=== PATIENT | male | born 1945 | race African-American/Black ===

== ENCOUNTER 2018-12-25 13:59 | Emergency (ER) | payer MEDICARE, MEDICAID ==
[~2018-12-25] VITALS: Ht 172.7 cm; Wt 65.0 kg
[2018-12-25] MEDS ORDERED: SODIUM CHLORIDE 0.9% 1,000 ML IV ONE (16:00)
[2018-12-25] MEDS ORDERED: ADENOSINE 3 MG/ML 2ML VIAL IV ONE (16:15)
[2018-12-25 16:42] LABS: BASOPHILS % 0.2 % (0.0-2.0); EOSINOPHILS % 0.4 % (0.0-5.0); HEMATOCRIT. 46.3 % (42.0-52.0); HEMOGLOBIN. 16.3 g/dL (14.0-18.0); LYMPHOCYTES % 10.7 % (20.0-50.0); MEAN CORPUSCULAR VOLUME 90.6 fL (80.0-94.0); MEAN PLATELET VOLUME 7.5 fl (7.4-10.4); MONOCYTES % 9.2 % (2.0-8.0); NEUTROPHILS % 79.5 % (40.0-76.0); PLATELET 277 x1000/uL (130-400); RED BLOOD CELL COUNT 5.11 mill/uL (4.7-6.1); RED CELL DISTRIBUTION WIDTH 13.6 % (11.6-14.6)
[2018-12-25 16:45] LABS: CHLORIDE 109 mEq/L (98-107)
[2018-12-25 16:53] VITALS: BP 106/75
== END 2018-12-25 18:41 | disposition home or self-care (01) ==
LOC: ER 13:59
DX: I47.1 Supraventricular tachycardia (principal); R55 Syncope and collapse; R42 Dizziness and giddiness; F14.10 Cocaine abuse, uncomplicated
CPT/HCPCS: 36415; 71045; 80053; 83735; 84484; 85025; 93005; 96360; 99284; J0153; J7030

== ENCOUNTER 2021-01-24 18:42 | Inpatient (IN) | payer MEDICARE, MEDICAID ==
[~2021-01-24] VITALS: Ht 175.3 cm; Wt 61.5 kg
[2021-01-24] MEDS ORDERED: SODIUM CHLORIDE 0.9% 1,000 ML IV ONE (19:00)
[2021-01-24 20:45] LABS: HEMATOCRIT. 46.8 % (42.0-52.0); HEMOGLOBIN. 15.8 g/dL (14.0-18.0); MEAN CORPUSCULAR HEMOGLOBIN 30.8 pg (28.0-32.0); MEAN CORPUSCULAR VOLUME 90.8 fL (80.0-94.0); MEAN PLATELET VOLUME 7.4 fl (7.4-10.4); PLATELET 266 x1000/uL (130-400); RED BLOOD CELL COUNT 5.15 mill/uL (4.7-6.1); RED CELL DISTRIBUTION WIDTH 13.4 % (11.6-14.6)
[2021-01-24 20:46] LABS: CHLORIDE 107 mEq/L (98-107)
[2021-01-24 20:51] LABS: ETHANOL BLOOD < 10 mg/dL
[2021-01-24 21:29] LABS: PLATELET ESTIMATE NORMAL
[2021-01-24 22:03] LABS: CLARITY URINE CLEAR (CLEAR); COLOR URINE YELLOW (YELLOW); KETONES URINE 1+ (NEGATIVE); LEUKOCYTE ESTERASE URINE NEGATIVE (NEGATIVE); NITRITE URINE NEGATIVE (NEGATIVE); OCCULT BLOOD URINE NEGATIVE (NEGATIVE); PROTEIN URINE 2+ (NEGATIVE); SPECIFIC GRAVITY URINE 1.015 (1.005-1.030)
[2021-01-24 22:17] LABS: *AMPHETAMINES SCREEN URINE NEGATIVE (NEGATIVE); *BARBITURATES SCREEN URINE NEGATIVE (NEGATIVE); *BENZODIAZEPINES SCREEN URINE NEGATIVE (NEGATIVE)
[2021-01-24 22:18] LABS: *COCAINE SCREEN URINE PRESUMTIVE POSITIVE (NEGATIVE); CANNABINOID URINE SCREEN NEGATIVE (NEGATIVE); METHADONE URINE SCREEN NEGATIVE (NEGATIVE); OPIATES URINE SCREEN NEGATIVE (NEGATIVE); PHENCYCLIDINE URINE SCREEN NEGATIVE (NEGATIVE)
[2021-01-25] VITALS (8 sets, daily range): BP systolic 106–148; BP diastolic 70–89
[2021-01-25] MEDS ORDERED: HYDR-4009 MT (10:01)
[2021-01-25] MEDS ORDERED: QUET25TA MT (10:01)
[2021-01-25] MEDS ORDERED: TAMS-11 PO (10:01)
[2021-01-25] MEDS ORDERED: INFLUENZA VACCINE 05/PF 0.5 ML SYRINGE IM ONE (10:15)
[2021-01-25] MEDS ORDERED: ONDANSETRON HCL 4MG/2ML INJ IV PRN (10:15)
[2021-01-25] MEDS ORDERED: ACETAMINOPHEN 325MG TABLET PO PRN (10:15)
[2021-01-25] MEDS ORDERED: HYDROCODONE/ACETAMINOPHEN 10/325MG TABLET PO PRN (10:30)
[2021-01-25] MEDS ORDERED: NALOXONE HCL 0.4MG/ML VIAL IV PRN (12:15)
[2021-01-25 12:56] LABS: BASOPHILS % 0.4 % (0.0-2.0); EOSINOPHILS % 0.6 % (0.0-5.0); HEMATOCRIT. 42.1 % (42.0-52.0); HEMOGLOBIN. 14.5 g/dL (14.0-18.0); LYMPHOCYTES % 15.1 % (20.0-50.0); MEAN CORPUSCULAR HEMOGLOBIN 30.9 pg (28.0-32.0); NEUTROPHILS % 76.9 % (40.0-76.0); PLATELET 271 x1000/uL (130-400); RED BLOOD CELL COUNT 4.68 mill/uL (4.7-6.1); RED CELL DISTRIBUTION WIDTH 13.6 % (11.6-14.6)
[2021-01-25 13:00] LABS: CHLORIDE 111 mEq/L (98-107)
[2021-01-25] MEDS: ENOXAPARIN 30MG/0.3ML SYR SUBCUT SCH (14:35)
[2021-01-25] MEDS: TAMSULOSIN HCL 0.4MG SR CAPSULE PO SCH (14:35)
[2021-01-25] MEDS: DILTIAZEM HCL 60MG TABLET PO SCH ×2 (14:36→18:59)
[2021-01-26] VITALS (7 sets, daily range): BP systolic 104–137; BP diastolic 67–89
[2021-01-26] MEDS: DILTIAZEM HCL 60MG TABLET PO SCH ×3 (00:15→12:00)
[2021-01-26 06:33] LABS: BASOPHILS % 0.7 % (0.0-2.0); EOSINOPHILS % 1.5 % (0.0-5.0); HEMATOCRIT. 41.7 % (42.0-52.0); HEMOGLOBIN. 14.3 g/dL (14.0-18.0); LYMPHOCYTES % 22.3 % (20.0-50.0); MEAN CORPUSCULAR HEMOGLOBIN 30.8 pg (28.0-32.0); MEAN CORPUSCULAR VOLUME 89.7 fL (80.0-94.0); MEAN PLATELET VOLUME 7.6 fl (7.4-10.4); MONOCYTES % 7.6 % (2.0-8.0); NEUTROPHILS % 67.9 % (40.0-76.0); PLATELET 266 x1000/uL (130-400); RED BLOOD CELL COUNT 4.65 mill/uL (4.7-6.1); RED CELL DISTRIBUTION WIDTH 13.5 % (11.6-14.6)
[2021-01-26 06:44] LABS: CHLORIDE 109 mEq/L (98-107)
[2021-01-26] MEDS: TAMSULOSIN HCL 0.4MG SR CAPSULE PO SCH (08:02)
[2021-01-26] MEDS: ENOXAPARIN 30MG/0.3ML SYR SUBCUT SCH (08:02)
[2021-01-26] MEDS ORDERED: ASPIRIN 81MG EC TABLET PO SCH (09:00)
== END 2021-01-26 13:00 | disposition home or self-care (01) | DRG 308 ==
LOC: ER 18:42 → 3WST 01-25 03:25 → ENRESERV 01-25 07:25
PROVIDERS: ADMIT Internal Medicine; ATTEND Internal Medicine
PROC: 5A2204Z Restoration of Cardiac Rhythm, Single (ICD-10-PCS; principal; 2021-01-25)
DX: I47.1 Supraventricular tachycardia (principal); N17.0 Acute kidney failure with tubular necrosis; I10 Essential (primary) hypertension; N40.0 Benign prostatic hyperplasia without lower urinary tract symptoms; E87.5 Hyperkalemia; F14.90 Cocaine use, unspecified, uncomplicated; Z88.0 Allergy status to penicillin; Z71.51 Drug abuse counseling and surveillance of drug abuser
CPT/HCPCS: 36415; 71045; 76770; 80048; 80053; 80305; 80320; 81003; 83880; 84153; 84443; 84484; 85025; 85379; 90686; 93005; 93306; 99285; J1650; J7030; G0103; G0480